=== PATIENT | male | born 1945 | race Caucasian/White ===

== ENCOUNTER 2020-04-18 19:36 | Inpatient (IN) | payer MEDICARE ==
[~2020-04-18] VITALS: Ht 180.3 cm; Wt 85.1 kg
[2020-04-18 20:00] LABS: Calcium, Ionized (POC) 1.08 mmol/L (1.10-1.46); Chloride (POC) 104 mmol/L (98-108); Creatinine (POC) 1.9 mg/dL (0.8-1.3); Glucose (ISTAT POC) 221 mg/dL (70-99); Hemoglobin (POC) 11.2 g/dL (13.5-17.5); Potassium (POC) 4.1 mmol/L (3.5-5.5); Sodium (POC) 132 mmol/L (135-148); Total CO2 (POC) 15 mmol/L (21-32)
[2020-04-18 20:21] LABS: Source, Urine Catheter
[2020-04-18 20:24] LABS: BASOPHILS ABSOLUTE AUTO 0.03 K/mm3 (0.00-0.23); BASOPHILS PERCENT AUTO 0 % (0-2); EOSINOPHILS ABSOLUTE AUTO 0.06 K/mm3 (0.00-0.68); EOSINOPHILS PERCENT AUTO 1 % (0-6); Hematocrit 36.1 % (37.0-53.0); Hemoglobin 11.2 g/dL (13.5-17.5); IMMATURE GRAN PERCENT AUTO 25 % (0-1); LYMPHOCYTES ABSOLUTE AUTO 2.58 K/mm3 (0.84-5.20); LYMPHOCYTES PERCENT AUTO 38 % (21-46); MONOCYTES ABSOLUTE AUTO 0.29 K/mm3 (0.16-1.47); MONOCYTES PERCENT AUTO 4 % (4-13); Mean Corpuscular HGB 28.2 pg (26.0-34.0); Mean Corpuscular Volume 91 fL (80-100); Mean Platelet Volume 10.3 fL (9.1-12.4); NEUTROPHILS PERCENT AUTO 32 % (41-73); Platelet Count 150 K/mm3 (150-400); RDW Coefficient Variation 12.7 % (11.7-14.2); RDW Standard Deviation 42.5 fL (35.1-46.3); Red Blood Cell Count 3.97 M/mm3 (4.30-5.90); White Blood Cell Count 6.86 K/mm3 (4.00-11.30)
[2020-04-18 20:24] LABS: PCO2 Arterial 34.6 mmHg (35-45); PO2 Arterial 331 mmHg (80-100)
[2020-04-18 20:25] LABS: pH Blood Arterial 7.24 (7.35-7.45)
[2020-04-18 20:25] LABS: Appearance, Urine Clear (Clear); Bilirubin, Urine Neg (Neg); Blood, Urine 2+ (Neg); Color, Urine Yellow (P-Yellow); Glucose Qualitative, Urine Neg (Neg); Ketones, Urine Neg (Neg); Leukocyte Esterase, Urine Neg (Neg); Nitrite, Urine Neg (Neg); Protein, Urine Neg (Neg); Specific Gravity, Urine 1.015 (1.003-1.022); Urobilinogen, Urine NORM (Normal)
[2020-04-18 20:34] LABS: Amorphous Light (0-Heavy); Bacteria Few /hpf; Squamous Epithelial Cells Not Seen /hpf (Few); White Blood Cells, Urine 0-2 /hpf (0-5)
[2020-04-18 20:42] LABS: BAND PERCENT MAN 7 % (0-8); BASOPHILS PERCENT MAN 0 % (0-2); EOSINOPHILS PERCENT MAN 0 % (0-6); LYMPHOCYTES ABSOLUTE MAN 2.67 K/mm3 (0.84-5.20); LYMPHOCYTES PERCENT MAN 39 % (21-46); MONOCYTES ABSOLUTE MAN 0.34 K/mm3 (0.16-1.47); MONOCYTES PERCENT MAN 5 % (4-13); NEUTROPHILS ABSOLUTE MAN 3.84 K/mm3 (1.96-9.15); SEG NEUTROPHILS PERCENT MAN 49 % (41-73); TOTAL CELLS COUNTED 100
[2020-04-18 20:47] LABS: D-Dimer, Quantitative 11.21 mg/L FEU (0.00-0.52); International Normalized Ratio 1.15; Prothrombin Time Results 12.2 Sec (9.7-11.5)
[2020-04-18 21:37] LABS: Albumin, Blood 2.5 g/dL (3.4-5.0); Albumin/Globulin Ratio 0.8 (0.8-1.8); Bilirubin, Total 0.5 mg/dL (0.1-1.0); Bun/Creatinine Ratio 33.5 (12.0-20.0); Calcium, Blood 7.8 mg/dL (8.5-10.1); Creatinine, Blood 1.7 mg/dL (0.60-1.20); Globulin, Blood 3.1 g/dL (2.2-4.0); Potassium, Blood 4.3 mmol/L (3.5-5.5); Total Protein, Blood 5.6 g/dL (6.4-8.2); Troponin I 0.055 ng/mL (0.000-0.040)
--- NOTE | 2020-04-18 22:20 | NUR ---
ASSUMED PT CARE PT ARRIVED FROM ER 2220 VIA GURNEY. PT ET TO VENT AC18, TV 450, FIO2 50%, PEEP OF 5. LUNG SOUNDS COARSE BUT CLEAR. LEVOPEHED INFUSING @ 20MCG, PROPOFOL @ 10 MCG, AMIODARONE BOLUS IN PROGRESS. PT UNRESPONSIVE TO TO VERBAL STIMULI, GRIMACES TO PAIN. OPEN 1.5 CM LACERATION WITH BRUISING NOTED TO UPPER NOSE. PT'S AND GRANDAUGHTER AT BEDSIDE. QUESTIONS ANSWERED. DR. MERIDA NOTIFIED OF CONSULT. WHILE DR. MERIDA AT BEDSIDE PT. NOTED TO HAVE SEIZURE ACTIVITY. RECEIVED ORDER FOR [address] MERIDA. NO FURTHER SZ ACTIVITY AFTER ATIVAN GIVEN. CODE STATUS DISCUSSED WITH PT'S AND FAMILY. PER PT'S PT WISHES DNR STATUS. DISCUSSED WITH DR. MERIDA. PT. TO HAVE TO COME OFF SEDATION FOR EEG IN AM.
[2020-04-19 01:40] LABS: BASOPHILS ABSOLUTE AUTO 0.11 K/mm3 (0.00-0.23); BASOPHILS PERCENT AUTO 1 % (0-2); Hematocrit 38.7 % (37.0-53.0); Hemoglobin 12.4 g/dL (13.5-17.5); LYMPHOCYTES ABSOLUTE AUTO 0.44 K/mm3 (0.84-5.20); LYMPHOCYTES PERCENT AUTO 4 % (21-46); MONOCYTES ABSOLUTE AUTO 0.62 K/mm3 (0.16-1.47); MONOCYTES PERCENT AUTO 5 % (4-13); Mean Corpuscular HGB 28.6 pg (26.0-34.0); Mean Corpuscular Volume 89 fL (80-100); Platelet Count 176 K/mm3 (150-400); RDW Coefficient Variation 12.8 % (11.7-14.2); RDW Standard Deviation 42.1 fL (35.1-46.3); Red Blood Cell Count 4.33 M/mm3 (4.30-5.90); White Blood Cell Count 12.41 K/mm3 (4.00-11.30)
[2020-04-19 01:42] LABS: EOSINOPHILS ABSOLUTE AUTO 0.01 K/mm3 (0.00-0.68); EOSINOPHILS PERCENT AUTO 0 % (0-6); IMMATURE GRAN PERCENT AUTO 0 % (0-1); NEUTROPHILS ABSOLUTE AUTO 11.23 K/mm3 (1.96-9.15); NEUTROPHILS PERCENT AUTO 91 % (41-73)
[2020-04-19 01:54] LABS: International Normalized Ratio 1.16; Prothrombin Time Results 12.3 Sec (9.7-11.5)
[2020-04-19 01:55] LABS: Albumin, Blood 2.9 g/dL (3.4-5.0); Albumin/Globulin Ratio 0.9 (0.8-1.8); Bilirubin, Total 0.4 mg/dL (0.1-1.0); Calcium, Blood 7.6 mg/dL (8.5-10.1); Creatinine, Blood 1.79 mg/dL (0.60-1.20); Globulin, Blood 3.2 g/dL (2.2-4.0); Potassium, Blood 4.5 mmol/L (3.5-5.5); Total Protein, Blood 6.1 g/dL (6.4-8.2)
[2020-04-19] MEDS ORDERED: LOW DOSE ASPIRI81 M1 PO (03:33)
[2020-04-19] MEDS ORDERED: LISI5 PO (03:34)
[2020-04-19] MEDS ORDERED: FURO20 PO (03:34)
[2020-04-19] MEDS ORDERED: SPIR25 PO (03:35)
[2020-04-19] MEDS ORDERED: METO25 PO (03:35)
[2020-04-19 05:01] LABS: PCO2 Arterial 25.3 mmHg (35-45); pH Blood Arterial 7.32 (7.35-7.45)
--- NOTE | 2020-04-19 05:11 | NUR ---
PT SEIZING, MUSCLE TREMORS NOTICES, EYES ROLLED UP BILATERALLY. 2 MG ATIVAN GIVEN. COOLING VEST AND BILATERAL COOLING LEG WRAPS APPLIED TO ACHIEVE 96.8 DEGREE COOLING GOAL.
--- NOTE | 2020-04-19 06:22 | NUR ---
SHIFT SUMMARY HYPOTHERMIA CONTINUES PT TEMP 96.8. OTHERWISE NO CHANGE IN STATUS FROM BEGINNING OF SHIFT.
--- NOTE | 2020-04-19 12:08 | NUR ---
PT REMAINS INTUBATED AND SEDATED. UNRESPONSIVE. WHEN SEDATION IS TURNED DOWN PT IS ASYNCHRONOUS WITH THE VENT. PT IS NOW ON SPONTANEOUS WITH PS 10 AND IS TOLERATING VENT BETTER. IS AT THE BEDSIDE. SPIRITUAL CARE HAS BEEN IN TO SEE PT. CONSULT FOR PALLIATIVE CARE PLACED. AWAITING EEG THIS AFTERNOON. IS REALISTIC AND SUPPORTIVE. OFFERING SUPPORT TO HER AND ANSWERING ANY QUESTIONS. STILL EXTERNALLY COOLING WITH [employer] TEMP OF 96.4 PER ORDERS. LEVOPHED AT 14MCG/MIN.
--- NOTE | 2020-04-19 13:11 | NUR ---
Pt admitted to the hospital for Cardiac Arrest with V Fib. 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 EF is 20%. Spoke with Bedside RN Liz and discussed case. Pt resting in bed and is intubated. Pt's spouse Flower is at bedside. Engaged in therapeutic listening as Flower describes events leading up to admission. Listened as Flower states second guessing her self on starting CPR on Pt. 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 Flower reports Pt did not want to do cancer treatment and plan no matter outcome is for Pt to admit onto hospice services. Answered questions and listening to concerns. Flower reports still wanting an EEG for family's peace of mind. Contined supportive visit and answered questions regarding hospice agencies to choose from. Flower expresses appreciation of visit and reports no other concerns at this time. Flower is agreeable for continued Palliative Care visits. Spoke with Dr Ernandez and discussed case. Spoke with Dr Andrade and discussed case. Palliative Care will remain available.
[2020-04-19 13:38] LABS: Hematocrit 38.1 % (37.0-53.0); Hemoglobin 12.2 g/dL (13.5-17.5); Mean Corpuscular HGB 28.1 pg (26.0-34.0); Mean Corpuscular Volume 88 fL (80-100); Mean Platelet Volume 10.1 fL (9.1-12.4); Platelet Count 167 K/mm3 (150-400); RDW Coefficient Variation 12.9 % (11.7-14.2); RDW Standard Deviation 41.6 fL (35.1-46.3); Red Blood Cell Count 4.34 M/mm3 (4.30-5.90); White Blood Cell Count 16.12 K/mm3 (4.00-11.30)
[2020-04-19 13:39] LABS: Albumin, Blood 2.8 g/dL (3.4-5.0); Albumin/Globulin Ratio 0.8 (0.8-1.8); Bilirubin, Total 0.3 mg/dL (0.1-1.0); Bun/Creatinine Ratio 31.7 (12.0-20.0); Calcium, Blood 7.7 mg/dL (8.5-10.1); Creatinine, Blood 1.67 mg/dL (0.60-1.20); Globulin, Blood 3.6 g/dL (2.2-4.0); Total Protein, Blood 6.4 g/dL (6.4-8.2)
[2020-04-19 13:43] LABS: International Normalized Ratio 1.12; Prothrombin Time Results 11.9 Sec (9.7-11.5)
[2020-04-19 14:14] LABS: BAND PERCENT MAN 13 % (0-8); BASOPHILS PERCENT MAN 0 % (0-2); EOSINOPHILS ABSOLUTE MAN 0.16 K/mm3 (0.00-0.68); EOSINOPHILS PERCENT MAN 1 % (0-6); LYMPHOCYTES ABSOLUTE MAN 1.77 K/mm3 (0.84-5.20); LYMPHOCYTES PERCENT MAN 11 % (21-46); MONOCYTES ABSOLUTE MAN 1.61 K/mm3 (0.16-1.47); MONOCYTES PERCENT MAN 10 % (4-13); NEUTROPHILS ABSOLUTE MAN 12.57 K/mm3 (1.96-9.15); SEG NEUTROPHILS PERCENT MAN 65 % (41-73); TOTAL CELLS COUNTED 100
--- NOTE | 2020-04-19 18:03 | NUR ---
Spiritual care note: I met with pt's at bedside. She initially declined visit, but then began talking about her marriage and srini. Flower appears to have a good grasp of potential outcomes. She seems to be processing through conversation. Gentle auto travel counselor and afirmation of love well recieved. Prayer for God's will provided at spouse request. I will remain available.
--- NOTE | 2020-04-19 18:44 | NUR ---
SUMMARY PT INTUBATED AND SEDATED WITH PROPOFOL. DURING SEDATION VACATION PT WAS UNRESPONSIVE. WAS OFF SEDATION FOR ABOUT 2 HRS WHILE EEG WAS BEING DONE. PT IS BEING EXTERNALLY COOLED. ON LEVOPHED GTT. ATTEMPTED TO TITRATE DOWN BUT BP WILL DROP IMMEDIATELY. DR. TANG ORDERED MAINTENANCE IVF. AMIODORONE GTT RUNNING AT 0.5MG/MIN. THIS EVENING PT'S RHYTHM WILL BECOME WIDE AND SUSTAIN FOR SHORT WHILE THEN GO BACK TO RHYTHM IT WAS IN ALL DAY. HAD STAT MAG AND POTASSIUM DRAWN. MAG IS WNL AND AWAITING POTASSIUM RESULTS. IS AT BEDSIDE NOW AND HAS BEEN UPDATED. IS SUPPORTIVE AND HAS A GOOD SUPPORT SYSTEM. REPORT GIVEN TO JESSI COHEN.
--- NOTE | 2020-04-19 19:39 | NUR ---
ASSUMED CARE PT ET TO VENT, SPONTANEOUS, TV 450, PEEP 5, FIO2 25%. NO SPONTANEOUS MOVEMENT OR RESPONSE TO VERBAL OR TACTILE STIMULI. SOME GRIMACING TO PAINFUL STIMULI. COOLING IN PROCESS TO END AT 2230. APPEARS COMFORTABLE, NO SZ ACTIVITY AT THIS TIME. OGT TO INTERMITTANT SUCTION, DRAINING SMALL AMOUNT OF BLOOG TINGED FLUID. GUO INTACT WITH CLEAR YELLOW URINE.
--- NOTE | 2020-04-19 22:05 | NUR ---
COOLING MEASURES DISCONTINUED. REMOVED COOLING PADS. PT. REMAINS UNRESPONSIVE. NO SPONTANEOUS MOVEMENT DURING PAS REMOVAL OR REPOSITIONING. NO EYE OPENING.
[2020-04-20 01:12] LABS: BASOPHILS ABSOLUTE AUTO 0.01 K/mm3 (0.00-0.23); BASOPHILS PERCENT AUTO 0 % (0-2); EOSINOPHILS ABSOLUTE AUTO 0.36 K/mm3 (0.00-0.68); EOSINOPHILS PERCENT AUTO 2 % (0-6); Hematocrit 34.2 % (37.0-53.0); Hemoglobin 11.6 g/dL (13.5-17.5); IMMATURE GRAN ABSOLUTE AUTO 0.53 K/mm3 (0.00-0.10); IMMATURE GRAN PERCENT AUTO 4 % (0-1); LYMPHOCYTES ABSOLUTE AUTO 1.46 K/mm3 (0.84-5.20); LYMPHOCYTES PERCENT AUTO 10 % (21-46); MONOCYTES ABSOLUTE AUTO 1.03 K/mm3 (0.16-1.47); MONOCYTES PERCENT AUTO 7 % (4-13); Mean Corpuscular HGB 29.1 pg (26.0-34.0); Mean Corpuscular HGB Conc 33.9 g/dL (31.5-36.5); Mean Corpuscular Volume 86 fL (80-100); Mean Platelet Volume 9.9 fL (9.1-12.4); NEUTROPHILS ABSOLUTE AUTO 11.93 K/mm3 (1.96-9.15); NEUTROPHILS PERCENT AUTO 78 % (41-73); Platelet Count 133 K/mm3 (150-400); RDW Coefficient Variation 12.9 % (11.7-14.2); Red Blood Cell Count 3.99 M/mm3 (4.30-5.90); White Blood Cell Count 15.32 K/mm3 (4.00-11.30)
[2020-04-20 01:27] LABS: International Normalized Ratio 1.11; Prothrombin Time Results 11.8 Sec (9.7-11.5)
[2020-04-20 01:32] LABS: Albumin, Blood 2.9 g/dL (3.4-5.0); Albumin/Globulin Ratio 0.9 (0.8-1.8); Bilirubin, Total 0.3 mg/dL (0.1-1.0); Bun/Creatinine Ratio 30.8 (12.0-20.0); Calcium, Blood 7.8 mg/dL (8.5-10.1); Creatinine, Blood 1.69 mg/dL (0.60-1.20); Globulin, Blood 3.3 g/dL (2.2-4.0); Potassium, Blood 3.8 mmol/L (3.5-5.5); Total Protein, Blood 6.2 g/dL (6.4-8.2)
--- NOTE | 2020-04-20 06:40 | NUR ---
SHIFT SUMMARY NO CHANGE IN STATUS FROM BEGINNING OF SHIFT. GRIMACES TO NOXIOUS STIMULI, NO OTHER SPONTANEOUS RESPONSE. 3-4 RUN OF VTA, INFORMED DR. TIERNEY. LEVOPHED DECREASED TO 8MCG, PT. TOLERATING WELL. PROPOFOL REMAINS AT 30MCG, AMIODARONE TO REMAIN AT 0.[address] TIERNEY.
--- NOTE | 2020-04-20 07:20 | NUR ---
REC'D BEDSIDE REPORT FROM VICKI ONOFRE AND AM NOW ASSUMING CARE OF THIS PT.
--- NOTE | 2020-04-20 07:53 | NUR ---
DR BURNETT AT THE BEDSIDE: UPDATED WITH PT'S CURRENT STATUS.
--- NOTE | 2020-04-20 11:08 | NUR ---
PT EXTUBATED AT THIS TIME TO COMFORT CARE PER FAMILY'S REQUEST. WILL MEDICATE PT WITH ATIVAN/DILAUDID FOR COMFORT. COMFORT CARE CART PENDING AND AND GRANDDAUGHTER REMAIN AT THE BEDSIDEL.
--- NOTE | 2020-04-20 12:30 | NUR ---
PT UPDATE: FAMILY PROVIDED WITH COMFORT CARE CART AT BEDSIDE. PT MEDICATED WITH DILAUDID IV FOR COMFORT. WILL CONTINUE TO CHECK WITH FAMILY FOR PT'S COMFORT NEEDS.
--- NOTE | 2020-04-20 14:00 | NUR ---
TOD: 1328, CONFIRMED BY THIS RN. PT'S AND GRANDDAUGHTER AT THE BEDSIDE. FAMILY WANTS TO USE [employer]. FAMILY WANTS TO REMAIN PRESENT TO MAKE SOME PHONE CALLS. THIS RN LEFT RM TO CALL ON FINAL DISCHARGE. PT IS A POTENTIAL EYE DONATION CANIDATE.
--- NOTE | 2020-04-20 14:00 | NUR ---
PT UPDATE: TOD: 1328. CONFIRMED BY THIS RN. PT'S SPOUSE AT BEDIDE DURING TOD. CALLED IN FINAL DISCHARGE AT THIS TIME. PT IS A POTENTIAL FOR EYE DONATION. WILL PLACE ICE BAGS.
== END 2020-04-20 13:28 | DRG 308 ==
LOC: ER 19:36 → EDBD 22:14 → ICUE 22:14 → ICUW 22:14 → ICUE 23:07
PROVIDERS: Emergency Medicine; Internal Medicine Critical Care Medicine; ADMIT Family Medicine
PROC: 5A1945Z Respiratory Ventilation, 24-96 Consecutive Hours (ICD-10-PCS; principal; 2020-04-18)
PROC: 3E033XZ Introduction of Vasopressor into Peripheral Vein, Percutaneous Approach (ICD-10-PCS; 2020-04-18)
DX: I49.01 Ventricular fibrillation (principal); J96.01 Acute respiratory failure with hypoxia; J18.9 Pneumonia, unspecified organism; G92 Toxic encephalopathy; E87.2 Acidosis; N17.9 Acute kidney failure, unspecified; E87.1 Hypo-osmolality and hyponatremia; F32.2 Major depressive disorder, single episode, severe without psychotic features; G93.1 Anoxic brain damage, not elsewhere classified; J98.11 Atelectasis; C34.92 Malignant neoplasm of unspecified part of left bronchus or lung; C78.1 Secondary malignant neoplasm of mediastinum; R57.9 Shock, unspecified; Z51.5 Encounter for palliative care; Z95.5 Presence of coronary angioplasty implant and graft; S02.2XXA Fracture of nasal bones, initial encounter for closed fracture; Z87.891 Personal history of nicotine dependence; I25.10 Atherosclerotic heart disease of native coronary artery without angina pectoris; I25.5 Ischemic cardiomyopathy; E78.5 Hyperlipidemia, unspecified; Z86.711 Personal history of pulmonary embolism; Z98.52 Vasectomy status; I46.2 Cardiac arrest due to underlying cardiac condition; Z90.2 Acquired absence of lung [part of]; W19.XXXA Unspecified fall, initial encounter; Y92.9 Unspecified place or not applicable; T68.XXXA Hypothermia, initial encounter; R57.0 Cardiogenic shock
CPT/HCPCS: 31720; 36415; 36600; 51702; 70450; 70486; 71045; 71260; 72125; 74018; 80047; 80053; 80177; 81001; 82803; 83605; 83690; 83735; 83880; 84132; 84145; 84484; 85014; 85025; 85379; 85610; 87040; 87106; 93005; 93010; 94002; 94003; 94640; 94770; 95819; 96361; 96375; 96376; 99285-25; C1751; C8929; C9113; J0282; J1170; J1953; J2060; J2543; J2704; J3010; J7030; J7050; J7060; J7120; Q9957; Q9967; U0003